=== PATIENT | female | born 1955 | race Caucasian/White ===

== ENCOUNTER 2020-05-30 09:49 | Outpatient (CLI) | payer OTHER, SELFPAY ==
--- NOTE | ~2020-05-30 | MM_ITS ---
EXAMINATION: MM screening naren BI w jean HISTORY: Screening mammogram TECHNIQUE: Craniocaudal and mediolateral oblique 3-D tomosynthesis images were obtained and synthetic 2-D images were generated. CAD analysis was submitted and interpreted. COMPARISON: Comparison to multiple prior studies sequentially, with oldest reviewed study dated 04/08. BREAST PARENCHYMAL COMPOSITION: The breasts are almost entirely fatty. FINDINGS: There is no evidence of suspicious mass, calcification, or architectural distortion to sugg est malignancy in either breast. There has been no suspicious interval change. IMPRESSION: 1. No mammographic evidence of malignancy. 2. Recommend routine screening mammography in one year. BI-RADS Category 1: Negative Reviewed, dictated and finalized at location A.
--- NOTE | ~2020-05-30 | DEXA_ITS ---
Bone Density Report Name: Viviana Mathews Age: 64 Sex: Female Ethnicity: White Date of : 1955 Indication: postmenopausal; parental hip fracture; prior fracture; Referring Provider: Kyler Taylor Study: Bone densitometry was performed. Exam Date: May 30, 2020 Accession number: [id number] Bone Density: Region BMD T-score Z-score Classification AP Spine (L1-L4) 1.085 0.3 2.1 Normal Femoral Neck (Left) 0.647 -1.8 -0.3 Osteopenia Total Hip (Left) 0.852 -0.7 0.5 Normal Total Hip Bilateral Avg 0.801 -1.1 0.1 Osteopenia Femoral Neck (Right) 0.628 -2.0 -0.5 Osteopenia Total Hip (Right) 0.748 -1.6 -0.3 Osteopenia World Health Organization criteria for BMD impression classify patients as: Normal (T-score at or above -1.0), Osteopenia (T-score between -1.0 and -2.5), or Osteoporosis (T-score at or below -2.5). 10-year Fracture Risk(1): Major Osteoporotic Fracture 30% Hip Fracture 2.7% Reported Risk Factors: [place] (), Neck BMD=0.628, BMI=30.5, previous fracture, parental fracture (1) FRAX(R) Version 3.08. Fracture probability calculated for an untreated patient. Fracture probability may be lower if the patient has received treatment. Clinical Information Provided by Patient: Has had a low trauma fracture Parent has had a hip fracture Patient maximum height was 64 Menopause Age: 44 Drinks caffeinated beverages Onset of menses at age 12 Number of children 2 Impression: The patient has low bone mass, based on the Right Femoral Neck T-score. The patient has an estimated ten-year risk of hip fracture of 2.7% and an estimated ten-year risk of major fracture of 30%, based on the WHO FRAX algorithm. The patient has risk factors, including: parental hip fracture, previous fracture. Discussion: BONE DENSITY IS LOW AT ONE OR MORE SKELETAL SITES. THE PATIENT'S BMD AND CLINICAL RISK FACTORS CONTRIBUTE TO THIS PATIENT'S INCREASED RISK OF FRACTURE. This patient's lowest T-score is low at one or more skeletal sites. It meets the World Health Organization's (WHO) criteria for ?low bone mass? (T-score between -1.0 and -2.5). The patient's 10-year risk of a major osteoporotic fracture as calculated by FRAX exceeds the threshold where pharmacological therapy is recommended by the National Osteoporosis Foundation (NOF). However, all treatment decisions require clinical judgment and consideration of individual patient factors, including patient preferences, comorbidities, previous drug use, risk factors not captured in the FRAX model (e.g., frailty, falls, vitamin D deficiency, increased bone turnover, interval significant decline in bone density) and possible under or overestimation of fracture risk by FRAX. The patient should follow a healthful lifestyle (good nutrition with adequate calcium and vitamin D,
== END 2020-05-30 09:50 | disposition home or self-care (01) ==
LOC: ANHIMG 09:55
PROVIDERS: PCP Family Medicine; Visit Provider Family Medicine
DX: Z78.0 Asymptomatic menopausal state (principal); Z12.31 Encounter for screening mammogram for malignant neoplasm of breast; M85.852 Other specified disorders of bone density and structure, left thigh; M85.851 Other specified disorders of bone density and structure, right thigh
CPT/HCPCS: 77063; 77067; 77080

== ENCOUNTER 2022-04-18 10:57 | Outpatient (CLI) | payer BC, SELFPAY ==
--- NOTE | ~2022-04-18 | XR_ITS ---
EXAMINATION: XR chest 2V 04/18/2022 11:11 INDICATION: Cough PROCEDURE: 2 view chest COMPARISON: No prior studies for comparison. FINDINGS: The lungs are clear. The cardiomediastinal silhouette is within normal limits. There are no pleural effusions. There is no pneumothorax suspected. IMPRESSION: 1: NO ACUTE CARDIOPULMONARY DISEASE. Reviewed, dictated and finalized at location B.
== END 2022-04-18 10:58 | disposition home or self-care (01) ==
PROVIDERS: PCP Family Medicine; Visit Provider Physician Assistant
DX: R05.9 Cough, unspecified (principal)
CPT/HCPCS: 71046

== ENCOUNTER 2023-06-30 12:17 | Outpatient (CLI) | payer BC, SELFPAY ==
--- NOTE | ~2023-06-30 | US_ITS ---
US abdomen limited INDICATION: Right upper quadrant pain PROCEDURE: Realtime right upper abdominal ultrasound. COMPARISON: No prior studies for comparison. FINDINGS: The pancreas is normal without focal mass or pancreatic ductal dilation. Liver echotexture is increased, consistent with fatty infiltration. There is normal directional flow in the portal ve in. The gallbladder is normal without stones, gallbladder wall thickening or pericholecystic fluid. Comm on bile duct measures 3 mm. No sonographic Black's sign. IMPRESSION: 1: Hepatic steatosis. Reviewed, dictated and finalized at location L. IMPRESSION: 1: Hepatic steatosis.
== END 2023-06-30 12:18 | disposition home or self-care (01) ==
PROVIDERS: PCP Family Medicine; Visit Provider Family Medicine
DX: R10.11 Right upper quadrant pain (principal); K76.0 Fatty (change of) liver, not elsewhere classified
CPT/HCPCS: 76705

== ENCOUNTER 2023-08-10 07:53 | Outpatient (CLI) | payer BC, SELFPAY ==
--- NOTE | ~2023-08-10 | NM_ITS ---
EXAMINATION: NM hepatobiliary wo pharm DATE: 08/10/2023 10:59 INDICATION: Right upper quadrant abdominal pain. COMPARISON: Ultrasound 06/30/2023 TECHNIQUE: 4.9 mCi Tc-99m mebrofenin (Choletec) was administered intravenously. Scintigraphic images of the abdomen were obtained for one hour. Then, the patient drank 8 oz Ensure, and imaging was cont inued for 60 minutes. FINDINGS: There is normal clearance of radiotracer from the blood pool. There is homogeneous tracer u ptake by the liver. Activity progresses to the bowel and gallbladder. Gallbladder ejection fraction (GBEF) was 89%. Note that with this technique, normal GBEF >= 33%. IMPRESSION: 1. Normal hepatobiliary scintigraphy. Reviewed, dictated and finalized at location E.
== END 2023-08-10 07:54 | disposition home or self-care (01) ==
PROVIDERS: PCP Family Medicine; Visit Provider Physician Assistant
DX: R10.11 Right upper quadrant pain (principal)
CPT/HCPCS: 78226; A9537

== ENCOUNTER 2024-01-05 04:07 | Day surgery (SDC) | payer BC, SELFPAY ==
[2023-12-08 13:24] VITALS: BMI 30.7
--- NOTE | 2024-01-01 12:45 | SUR.PREOP ---
Patient called regarding upcoming procedure. Reviewed preop instructions, appointment times, and procedure prep.
--- NOTE | 2024-01-04 14:39 | PM.HPGS ---
History of Present Illness History of Present Illness Consent: Risks, benefits, and alternatives have been discussed and questions answered. Patient agrees to proceed with procedure. Chief complaint: hx of colon polyps Narrative: Viviana Mathews is a 68 year old female Referred for colon cancer screening. I had performed her last colonoscopy 6 years ago, removing a tubular adenoma from the rectum Review of Systems Review of Systems: All systems reviewed & are unremarkable except as noted in HPI and below PMFSH Past Medical History Medical History DM neuro manif type II Mixed hyperlipidemia Obesity Type 2 diabetes mellitus with hyperglycemia Surgical History Surgical History H/O colonoscopy History of knee replacement Family History Family History Mother Cerebrovascular accident Diabetes mellitus Father Family history of Alzheimer's disease Social History Social History Smoking status: Never smoker Second hand tobacco smoke exposure: No Alcohol intake: current Drinks per week: 2 Alcohol use details: 1 a month Substance use: never Substance use type: does not use Living arrangements: with family Occupation/Education: retired Gender identity (if verbalized by the patient): Female Sexual Orientation (if Verbalized by the Patient): Straight or Heterosexual Spiritual care concerns: No Meds Home Medications and Allergies Home Medications Medication Instructions Recorded Confirmed Type pen needle, diabetic 32 gauge x #100 ea 10/12/19 12/08/23 Rx (BD Ultra-Fine Arminda Pen Needle) triamcinolone acetonide 0.025 % 1 applic topical BID PRN itching 09/11/20 01/05/24 Rx topical cream #80 grams diltiazem HCl 120 mg 120 mg PO DAILY 12/23/21 01/05/24 History capsule,extended release 24 hr, controlled albuterol sulfate 90 mcg/actuation 1 puff inhalation Q4-6H PRN 04/17/22 01/05/24 Rx aerosol inhaler shortness of breath or wheezing #8.5 grams blood sugar diagnostic (FreeStyle #100 strips 01/02/23 12/08/23 Rx Lite Strips) insulin glargine 100 unit/mL (3 25 unit (0.25 mL) subcut DAILY #15 08/20/23 01/05/24 Rx mL) subcutaneous pen (Basaglar mL KwikPen U-100 Insulin) atorvastatin 40 mg tablet See Rx Instructions .Route 11/05/23 01/05/24 Rx .COMPLEX #90 tabs metformin 500 mg tablet,extended See Rx Instructions .Route 11/05/23 01/05/24 Rx release 24 hr .COMPLEX #360 tabs aspirin 81 mg tablet 81 mg PO DAILY 12/08/23 01/05/24 History omeprazole 20 mg tablet,delayed 20 mg PO DAILY 12/08/23 01/05/24 History release semaglutide 0.25 mg or 0.5 mg (2 0.5 mg (0.736 mL) subcut WEEKLY #3 12/24/23 01/05/24 Rx mg/3 mL) subcutaneous pen injector mL (Ozempic) zolpidem 12.5 mg tablet,extended 12.5 mg PO QHS #30 tabs 12/29/23 01/05/24 Rx release,multiphase Allergies Allergy/AdvReac Type Severity Reaction Status Date / Time empagliflozin Allergy Intermediate yeast Verified 01/05/24 06:39 infection adhesive Allergy Unknown RASH Verified 01/05/24 06:39 adhesive tape Allergy Unknown Unknown Verified 01/05/24 06:39 dulaglutide Allergy Unknown Unknown Verified 01/05/24 06:39 latex Allergy Unknown Unknown Verified 01/05/24 06:39 liraglutide Allergy Unknown itchy hives Verified 01/05/24 06:39 ropinirole Allergy Unknown Unknown Verified 01/05/24 06:39 sitagliptin Allergy Unknown abdominal Verified 01/05/24 06:39 pain Exam Resp: Auscultation: clear to auscultation bilaterally Cardio: Rate: regular rate Rhythm: regular rhythm GI: GI Palp: Yes Soft to palpation and No Tenderness to palpation present (GI) Assessment and Plan Assessment and plan (1) Colon cancer screening: Code(s): Z12.11 - Encounter for screening for
[2024-01-05 06:42] VITALS: BP 143/64; PULSE 101; RESP 16; TEMP 36.1; O2SAT 96
[2024-01-05 06:44] LABS: Glucose Point of Care 134 mg/dl (65-105)
[2024-01-05] MEDS: LACTATED RINGERS 1,000 ML 150 ML IV CONT (06:47)
--- NOTE | 2024-01-05 07:05 | WPDANESEPPF ---
Anes - Initial Pre Proc Eval Procedure: Operation Date: 01/05/24 08:00 Proposed Procedures p Colonoscopy - Kris Rodriguez MD Date/Time: 01/05/24 07:05 Surgeon: Kris Rodriguez MD Pre Op Diagnosis: hx of colon polyps Patient Data Age: 68 Gender: F Height: 1.6 m Weight: 77.2 kg Last Vital Signs Temp 36.1 C L 01/05/24 06:42 Pulse 101 H 01/05/24 06:42 Resp 16 01/05/24 06:42 BP 143/64 H 01/05/24 06:42 Pulse Ox 96 01/05/24 06:42 O2 Del Method Room Air 01/05/24 06:42 Allergies Allergy/AdvReac Type Severity Reaction Status Date / Time empagliflozin Allergy Intermediate yeast Verified 01/05/24 06:39 infection adhesive Allergy Unknown RASH Verified 01/05/24 06:39 adhesive tape Allergy Unknown Unknown Verified 01/05/24 06:39 dulaglutide Allergy Unknown Unknown Verified 01/05/24 06:39 latex Allergy Unknown Unknown Verified 01/05/24 06:39 liraglutide Allergy Unknown itchy hives Verified 01/05/24 06:39 ropinirole Allergy Unknown Unknown Verified 01/05/24 06:39 sitagliptin Allergy Unknown abdominal Verified 01/05/24 06:39 pain Home Medications Medication Instructions Recorded Confirmed Type pen needle, diabetic 32 gauge x #100 ea 10/12/19 12/08/23 Rx 5/32 (BD Ultra-Fine Arminda Pen Needle) triamcinolone acetonide 0.025 % 1 applic topical BID PRN itching 09/11/20 01/05/24 Rx topical cream #80 grams diltiazem HCl 120 mg 120 mg PO DAILY 12/23/21 01/05/24 History capsule,extended release 24 hr, controlled albuterol sulfate 90 mcg/actuation 1 puff inhalation Q4-6H PRN 04/17/22 01/05/24 Rx aerosol inhaler shortness of breath or wheezing #8.5 grams blood sugar diagnostic (FreeStyle #100 strips 01/02/23 12/08/23 Rx Lite Strips) insulin glargine 100 unit/mL (3 25 unit (0.25 mL) subcut DAILY #15 08/20/23 01/05/24 Rx mL) subcutaneous pen (Basaglar mL KwikPen U-100 Insulin) atorvastatin 40 mg tablet See Rx Instructions .Route 11/05/23 01/05/24 Rx .COMPLEX #90 tabs metformin 500 mg tablet,extended See Rx Instructions .Route 11/05/23 01/05/24 Rx release 24 hr .COMPLEX #360 tabs aspirin 81 mg tablet 81 mg PO DAILY 12/08/23 01/05/24 History omeprazole 20 mg tablet,delayed 20 mg PO DAILY 12/08/23 01/05/24 History release semaglutide 0.25 mg or 0.5 mg (2 0.5 mg (0.736 mL) subcut WEEKLY #3 12/24/23 01/05/24 Rx mg/3 mL) subcutaneous pen injector mL (Ozempic) zolpidem 12.5 mg tablet,extended 12.5 mg PO QHS #30 tabs 12/29/23 01/05/24 Rx release,multiphase Laboratory Tests 01/05/24 06:41 POC Capillary Glucose 134 H mg/dl (65-105) Patient hx anesthesia problems: other (Pt states she has woken up during 3 surgeries) Family hx anesthesia problems: none Results Review: All pre-operative results and documents have been reviewed as part of the pre-operative evaluation. [facility] Past Medical History Medical History (Updated 01/05/24 @ 07:06 by Freddy Clemente MD) DM neuro manif type II Mixed hyperlipidemia Obesity Type 2 diabetes mellitus with hyperglycemia Surgical History Surgical History (Updated 01/05/24 @ 07:06 by Freddy Clemente MD) H/O colonoscopy History of knee replacement Family History Family History Mother Cerebrovascular accident Diabetes mellitus Father Family history of Alzheimer's disease Social History Social History Smoking status: Never smoker Second hand tobacco smoke exposure: No Alcohol intake: current Drinks per week: 2 Alcohol use details: 1 a month Substance use: never Substance use type: does not use Living arrangements: with family Occupation/Education: retired Gender identity (if verbalized by the patient): Female Sexual Orientation (if Verbalized by the Patient): Straight or Heterosexual Spiritual care concerns: No Anes - Eval Final PreProcedure
[2024-01-05 08:20] VITALS: BP 111/60; PULSE 86; RESP 18; O2SAT 96
[2024-01-05 08:30] VITALS: BP 107/63; PULSE 88; RESP 16; O2SAT 98
[2024-01-05 08:40] VITALS: BP 124/80; PULSE 87; RESP 18; O2SAT 100
[2024-01-05 08:41] LABS: Glucose Point of Care 113 mg/dl (65-105)
== END 2024-01-05 08:46 | disposition home or self-care (01) ==
PROVIDERS: PCP Family Medicine; Visit Provider Internal Medicine Gastroenterology
PROC: 0DJD8ZZ Inspection of Lower Intestinal Tract, Via Natural or Artificial Opening Endoscopic (ICD-10-PCS; CPT 45378; principal; 2024-01-05 08:00)
DX: Z12.11 Encounter for screening for malignant neoplasm of colon (principal); K57.30 Diverticulosis of large intestine without perforation or abscess without bleeding; E78.2 Mixed hyperlipidemia; E11.65 Type 2 diabetes mellitus with hyperglycemia; E66.9 Obesity, unspecified; Z68.30 Body mass index [BMI] 30.0-30.9, adult; Z79.51 Long term (current) use of inhaled steroids; Z79.4 Long term (current) use of insulin; Z79.84 Long term (current) use of oral hypoglycemic drugs; Z79.82 Long term (current) use of aspirin; Z79.85 Long-term (current) use of injectable non-insulin antidiabetic drugs; Z98.890 Other specified postprocedural states; Z86.010 Personal history of colon polyps; Z82.49 Family history of ischemic heart disease and other diseases of the circulatory system
CPT/HCPCS: 45378; 82948; J2704; J7120

== ENCOUNTER 2024-03-31 13:41 | Outpatient (CLI) | payer BC, SELFPAY ==
--- NOTE | ~2024-03-31 | MM_ITS ---
EXAMINATION: MM screening naren BI w jean HISTORY: Screening TECHNIQUE: Craniocaudal and mediolateral oblique 3-D tomosynthesis images were obtained and synthetic 2-D images were generated. CAD analysis was submitted and interpreted. COMPARISON: Comparison to multiple prior studies sequentially, with oldest reviewed study dated 04/08. BREAST PARENCHYMAL COMPOSITION: The breasts are almost entirely fatty. FINDINGS: There is no evidence of suspicious mass, calcification, or architectural distortion to sugg est malignancy in either breast. There has been no suspicious interval change. IMPRESSION: 1. No mammographic evidence of malignancy. 2. Recommend routine screening mammography in one year. BI-RADS Category 1: Negative Reviewed, dictated and finalized at location A.
--- NOTE | ~2024-03-31 | DEXA_ITS ---
Bone Density Report Name: LASHONDA DEL ANGEL Age: 68 Sex: Female Ethnicity: White Date of : 1955 Indication: osteopenia; parental hip fracture; height loss; history of glucocorticoids; Referring Provider: DICK VICENTE Study: Bone densitometry was performed. Exam Date: March 31, 2024 Accession number: [id number] Bone Density: Region BMD T-score Z-score Classification AP Spine(L1-L4) 1.082 0.3 2.4 Normal Femoral Neck (Left) 0.632 -2.0 -0.2 Osteopenia Total Hip (Left) 0.801 -1.2 0.3 Osteopenia Femoral Neck (Right) 0.627 -2.0 -0.2 Osteopenia Total Hip (Right) 0.775 -1.4 0.1 Osteopenia Total Hip Mean 0.788 -1.3 0.2 Osteopenia World Health Organization criteria for BMD impression classify patients as: Normal (T-score at or above -1.0), Osteopenia (T-score between -1.0 and -2.5), or Osteoporosis (T-score at or below -2.5). 10-year Fracture Risk(1): Major Osteoporotic Fracture 28% Hip Fracture 6.9% Reported Risk Factors: [place] (), Neck BMD=0.632, BMI=28.8, parental fracture, glucocorticoids (1) FRAX(R) Version 3.08. Fracture probability calculated for an untreated patient. Fracture probability may be lower if the patient has received treatment. Previous Exams: Region Exam Age BMD T-score BMD Change BMD Change Date g/cm2 vs Baseline vs Previous AP Spine (L1-L4) 03/31/2024 68 1.082 0.3 -0.003 (-0.3%) -0.003 (-0.3%) 05/30/2020 64 1.085 0.3 Total Hip(Left) 03/31/2024 68 0.801 -1.2 -0.051 (-5.9%) -0.051 (-5.9%) 05/30/2020 64 0.852 -0.7 Total Hip(Right) 03/31/2024 68 0.775 -1.4 0.027 (3.6%) 0.027 (3.6%) 05/30/2020 64 0.748 -1.6 *Denotes significance at 95% confidence level, LSC for AP Spine = 0.022 g/cm2, LSC for Total Hip = 0.027 g/cm2 Clinical Information Provided by Patient: Parent has had a hip fracture Has taken Glucocorticoids Has used the following medications: Vitamin D Patient maximum height was 65.0 Menopause Age: 44 Does not regularly consume dairy products Drinks caffeinated beverages Onset of menses at age 11 Number of children 2 Impression: The patient has low bone mass, based on the Left Femoral Neck T-score. The patient has an estimated ten-year risk of hip fracture of 6.9% and an estimated ten-year risk of major fracture of 28%, based on the WHO FRAX algorithm. The patient has risk factors, including: parental hip fracture, history of glucocorticoid therapy. The BMD for the Total Hip(Left) decreased, changing by -5.9% since the last DXA exam. D
== END 2024-03-31 13:42 | disposition home or self-care (01) ==
PROVIDERS: PCP Family Medicine; Visit Provider Family Medicine
DX: Z12.31 Encounter for screening mammogram for malignant neoplasm of breast (principal); Z78.0 Asymptomatic menopausal state; M85.852 Other specified disorders of bone density and structure, left thigh; M85.851 Other specified disorders of bone density and structure, right thigh
CPT/HCPCS: 77063; 77067; 77080